=== PATIENT | male | born 1955 | race Caucasian/White ===

== ENCOUNTER 2017-10-08 03:32 | Emergency (ER) | payer OTHER, MEDICAID ==
[~2017-10-08] VITALS: Ht 185.4 cm; Wt 73.2 kg
[~2017-10-08 03:32] MED LIST: ACET-1008 PO; AMLO5TAB10 PO; ASPI-771 PO; ATOR80TA PO; BACL10TA2 PO; CEFT2FRO2 IV; CLIN900P10 IV; CLOP75TA33 PO; ENOX40SY7 SUBCUT; GABA-530 PO; HYDR-3965 PO; IRON-32 PO; LACT1CAP67 PO; MORP-11 PO; NITR0.4T48 SL; PANT40TA4 PO; PER10325T PO; TAMS0.4C32 PO; [UNRECOGNIZED DRUG - CODE] PO
[2017-10-08 04:30] LABS: BASOPHILS % (AUTO) 0.6 % (0-1); EOSINOPHILS # (AUTO) 0.6 X10'3 (0-0.9); EOSINOPHILS % (AUTO) 13.5 % (0-6); HEMATOCRIT 32.3 % (42.0-52.0); HEMOGLOBIN 10.7 g/dl (14.0-17.9); LYMPHOCYTES # (AUTO) 1.1 X10'3 (1.1-4.8); LYMPHOCYTES % (AUTO) 26.4 % (21-51); MEAN CORPUSCULAR HEMOGLOBIN 29.7 PG (27.0-31.0); MEAN CORPUSCULAR HGB CONC 33.1 % (33.0-36.5); MEAN CORPUSCULAR VOLUME 89.6 FL (78-98); MEAN PLATELET VOLUME 7.5 FL (7.4-10.4); MONOCYTES # (AUTO) 0.3 X10'3 (0-0.9); NEUTROPHILS # (AUTO) 2.2 X10'3 (1.8-7.7); NEUTROPHILS % (AUTO) 51.5 % (42-75); PLATELET COUNT 123 X10'3 (140-440); RED CELL DISTRIBUTION WIDTH 15.8 % (11.5-14.5); WHITE BLOOD COUNT 4.3 X10'3 (4.5-11.0)
[2017-10-08 04:46] LABS: ALANINE AMINOTRANSFERASE 89 U/L (12-78); ALBUMIN 3.3 G/DL (3.4-5.0); ALBUMIN/GLOBULIN RATIO 0.8 (1.1-1.5); ALKALINE PHOSPHATASE 248 IU/L (46-116); ANION GAP 8 (8-16); ASPARTATE AMINO TRANSFERASE 71 U/L (10-37); BILIRUBIN,TOTAL 0.2 MG/DL (0.1-1.0); BLOOD UREA NITROGEN 33 MG/DL (7-18); BUN/CREATININE RATIO 20.9 (5.4-32.0); CALCIUM 10.6 MG/DL (8.5-10.1); CHLORIDE 111 MMOL/L (99-107); CREATININE 1.58 MG/DL (0.60-1.10); GLUCOSE 86 MG/DL (70-104); POTASSIUM 4.6 MMOL/L (3.5-5.1); SODIUM 142 MMOL/L (135-145); TOTAL CARBON DIOXIDE 22.8 MMOL/L (24-32); TOTAL PROTEIN 7.5 G/DL (6.4-8.2); eGFR 45 ML/MIN
[2017-10-08 04:56] VITALS: BP 135/61
[2017-10-08 05:16] LABS: PARTIAL THROMBOPLASTIN TIME 26 SECONDS (22-32)
== END 2017-10-08 05:30 | disposition home or self-care (01) ==
LOC: ER 03:32
DX: R07.9 Chest pain, unspecified (principal); G89.29 Other chronic pain; R10.84 Generalized abdominal pain; F12.10 Cannabis abuse, uncomplicated; I25.10 Atherosclerotic heart disease of native coronary artery without angina pectoris; I50.9 Heart failure, unspecified; E78.00 Pure hypercholesterolemia, unspecified; I25.2 Old myocardial infarction; Z86.711 Personal history of pulmonary embolism; Z95.5 Presence of coronary angioplasty implant and graft; Z98.890 Other specified postprocedural states; Z88.8 Allergy status to other drugs, medicaments and biological substances; Z79.899 Other long term (current) drug therapy; Z79.82 Long term (current) use of aspirin; Z88.6 Allergy status to analgesic agent; Z79.01 Long term (current) use of anticoagulants
CPT/HCPCS: 36415; 71045; 80053; 84484; 85025; 85610; 85730; 93005; 99285

== ENCOUNTER 2018-12-16 01:10 | Emergency (ER) | payer MEDICAID, OTHER ==
[~2018-12-16] VITALS: Ht 182.9 cm; Wt 79.5 kg
[~2018-12-16 01:10] MED LIST changes: -HYDR-3965 PO
[2018-12-16 01:24] VITALS: BP 0/0
--- NOTE | 2018-12-16 02:09 | NUR ---
KEY ACCOUNT DIRECTOR AT BEDSIDE, [employer] NET[employer] CONTACTED.
--- NOTE | 2018-12-16 02:25 | NUR ---
ACTIVITY THERAPY TEACHERBAYRON MONROE AT BEDSIDE TO TAKE POSSESSION OF BODY, [employer] CONTACTED WITH NO INTEREST IN THE BODY OR ORGANS. PT MOTHER ARRIVED, SHE WAS SAT DOWN IN RAP ROOM AND MD DOSHI TALKED TO HER. PT BELONGINGS WITH INSPECTED BY ACTIVITY THERAPY TEACHER AND RELEASED TO MOTHER.
== END 2018-12-16 02:51 | disposition expired ==
LOC: ER 01:10
DX: I46.9 Cardiac arrest, cause unspecified (principal); I25.10 Atherosclerotic heart disease of native coronary artery without angina pectoris; I50.9 Heart failure, unspecified; E78.00 Pure hypercholesterolemia, unspecified; I25.2 Old myocardial infarction; G89.29 Other chronic pain; F12.90 Cannabis use, unspecified, uncomplicated; Z95.5 Presence of coronary angioplasty implant and graft; Z98.890 Other specified postprocedural states; Z60.2 Problems related to living alone; Z86.711 Personal history of pulmonary embolism; Z88.8 Allergy status to other drugs, medicaments and biological substances; Z79.82 Long term (current) use of aspirin; Z79.899 Other long term (current) drug therapy
CPT/HCPCS: 99285